=== PATIENT | male | born 1950 | race Hispanic/Latino ===

== ENCOUNTER 2017-03-30 16:48 | Emergency (ER) | payer MEDICARE, OTHER ==
[2017-03-30 16:59] VITALS: BMI 25.8
[2017-03-30 17:07] VITALS: TEMP 98.1
[2017-03-30] MEDS ORDERED: Lidocaine 1% Inj (20ml) ONE (17:26)
[2017-03-30] MEDS ORDERED: Lidocaine 1% Inj (20ml) IJ STA (18:03)
[2017-03-30] MEDS ORDERED: Aritificial Tears (15ml) OU ONE (18:03)
--- NOTE | 2017-03-30 18:09 | ED PDOC ---
Arrival/HPI - General Historian: Patient, Spouse - History of Present Illness Time/Duration: Prior to Arrival Symptom Onset: Sudden Symptom Course: Unchanged Activities at Onset: Rest Context: Sitting <Beau Coronado - Last Filed: 03/30/17 19:13> <MarivelGeraldine - Last Filed: 03/30/17 19:43> - General Chief Complaint: Abnormal Skin Integrity Time Seen by Provider: 03/30/17 17:03 - History of Present Illness Narrative History of Present Illness (Text): 67 M presents to ED with complaint of bleeding surgical wound above right eye. Patient states that he had bilateral eye lift earlier today by Dr. Ma on [facility] in [facility]. Patient reports that he left the surgeon's office and got to [place] when his eye began to bleed. Patient's got off of the first exit and came straight to hospital. The laceration is located in suprapalebral are above right eye. Patient reports minimal pain. Denies fever/ chills, cp, sob, palpitations, abd pain, n/v/d. (Beau Coronado) Past Medical History - Provider Review Nursing Documentation Reviewed: Yes - Travel History Have you recently traveled outside [place] w/in the past 3 mons?: No - Infectious Disease Hx of Infectious Diseases: None - Cardiac Hx Cardiac Disorders: Yes Hx Hypertension: Yes - Pulmonary Hx Respiratory Disorders: No - Neurological Hx Neurological Disorder: No - HEENT Hx HEENT Disorder: No - Renal Hx Renal Disorder: No - Endocrine/Metabolic Hx Endocrine Disorders: No - Hematological/Oncological Hx Blood Disorders: No - Integumentary Hx Dermatological Disorder: No - Musculoskeletal/Rheumatological Hx Musculoskeletal Disorders: Yes Hx Back Pain: Yes Other/Comment: drop foot L foot - Gastrointestinal Hx Gastrointestinal Disorders: No - Genitourinary/Gynecological Hx Genitourinary Disorders: No - Psychiatric Hx Psychophysiologic Disorder: No Hx Substance Use: No - Anesthesia Hx Anesthesia: Yes Hx Anesthesia Reactions: No <Beau Coronado - Last Filed: 03/30/17 19:13> Family/Social History - Physician Review Nursing Documentation Reviewed: Yes Family/Social History: Unknown Family HX Smoking Status: Current Some Days Smoker Hx Alcohol Use: No Hx Substance Use: No <Beau Coronado - Last Filed: 03/30/17 19:13> Allergies/Home Meds <Beau Coronado - Last Filed: 03/30/17 19:13> <Geraldine Orta - Last Filed: 03/30/17 19:43> Allergies/Adverse Reactions: Allergies No Known Allergies Allergy (Verified 03/30/17 16:59) Home Medications: Home Meds Medication Instructions Recorded Confirmed Gabapentin [Neurontin] 1,200 mg PO BID 03/30/17 03/30/17 amLODIPine [Norvasc] 10 mg PO DAILY 03/30/17 03/30/17 Review of Systems - Review of Systems Constitutional: absent: Fatigue, Weight Change, Fevers, Night Sweats Eyes: absent: Vision Changes, Photophobia, Eye Pain ENT: absent: Hearing Changes, Rhinorrhea, Sinus Congestion Respiratory: absent: SOB, Cough, Sputum, Wheezing Cardiovascular: absent: Chest Pain, Palpitations, Calf Pain, ROJO, Syncope Gastrointestinal: absent: Abdominal Pain, Constipation, Diarrhea, Nausea, Vomiting Genitourinary Male: absent: Dysuria, Frequency, Hematuria, Urinary Output Changes Musculoskeletal: absent: Arthralgias, Back Pain, Neck Pain, Joint Swelling, Myalgias Skin: Other (suture broke from surgery earlier today) Neurological: Headache. absent: Dizziness, Focal Weakness, Gait Changes Endocrine: absent: Diaphoresis, Polyuria, Polydipsia Hemo/Lymphatic: absent: Adenopathy, Easy Bleeding, Easy Bruising Psychiatric: absent: Anxiety, Depression, Suicidal Ideation <JohnprosperBeau dee - Last Filed: 03/30/17 19:13> Physical Exam Vital Signs Reviewed: Yes Temperature: Afebrile Blood Pressure: Hypertensive Pulse: Regular Respiratory Rate: Normal Appearance: Positive for: Well-Appearing, Non-Toxic, Comfortable Pain Distress: Mild Mental Status: Positive for: Alert and Oriented X 3 - Systems Exam Head: Present: Normocephalic, Other (sutures above eyes bilateral from eye lift surgery, Right eye wound dehiscendence with bleed) Pupils: Present: PERRL Extroacular Muscles: Present: EOMI Conjunctiva: Present: Normal Ears: Present: Normal Mouth: Present: Moist Mucous Membranes Pharnyx: Present: Normal Nose (External): Present: Atraumatic Nose (Internal): Present: Normal Inspection Neck: Present: Normal Range of Motion, Trachea Midline Respiratory/Chest: Present: Clear to Auscultation, Good Air Exchange Cardiovascular: Present: Regular Rate and Rhythm, Normal S1, S2 Abdomen: Present: Normal Bowel Sounds. No: Tenderness, Distention, Peritoneal Signs Back: Present: Normal Inspection Upper Extremity: Present: NORMAL PULSES, Neurovascularly Intact, Capillary Refill < 2s Lower Extremity: Present: NORMAL PULSES, Neurovascularly Intact, Capillary Refill < 2 s Neurological: Present: GCS=15, CN II-XII Intact, Speech Normal, Motor Func Grossly Intact, Normal Sensory Function Skin: Present: Warm, Dry, Other (surgical wounds suture above bilateral eyes, right eye surg wound dehiscence suture with bleed) Lymphatic: No: Cervical Adenopathy, Axillary Adenopathy, Inguinal Adenopathy Psychiatric: Present: Alert, Oriented x 3, Normal Insight, Normal Concentration , Normal Affect, Normal Mood <Beau Coronado - Last Filed: 03/30/17 19:13> <Geraldine Orta - Last Filed: 03/30/17 19:43> Vital Signs Temp Pulse Resp BP Pulse Ox 03/30/17 18:21 80 18 136/87 99 03/30/17 17:06 98.1 F 91 H 19 132/100 H 96 Medical Decision Making <Beau Coronado - Last Filed: 03/30/17 19:13> <Geraldine Orta - Last Filed: 03/30/17 19:43> ED Course and Treatment: Three 6-0 nylon sutures were placed and bleeding was controlled. Bacitracin was applied and ice pack was given to control swelling. Patient is feeling better and is stable for discharge home. (Beau Coronado) Patient seen and examined with resident. Came up with treatment and disposition plan with resident. The patient is a 67 year old male who presented to the emergency department for evaluation of bleeding for a surgical wound. Additional HPI details as noted by the resident. On physical examination the patient has sutures to the bilateral eyes but the right side had some dehiscence. (Geraldine Orta) - Medication Orders Current Medication Orders: Discontinued Medications Artificial Tears (Artificial Tears) 1 ml OU ONCE ONE Stop: 03/30/17 18:04 Last Admin: 03/30/17 18:16 Dose: 2 drop Lidocaine HCl (Lidocaine 1% (20ml)) Confirm Administered Dose 20 ml .ROUTE .STK- MED ONE Stop: 03/30/17 17:27 Lidocaine HCl (Lidocaine 1% (20ml)) 20 ml IJ STAT STA Stop: 03/30/17 18:04 Last Admin: 03/30/17 18:00 Dose: 1 bottle - Procedure PROCEDURE NOTE (Text): PROCEDURE: LACERATION REPAIR Performed by the emergency provider Location: Right suprapalebral Length: 1 cm Description: clean wound edges,no foreign bodies, Surgical wound Distal CMS: Normal. No deficits. Neurovascularly intact. Anesthesia: Lidocaine 1% Preparation: The wound was cleaned with NS and Betadyne. The area was prepped and draped in the usual sterile fashion. Exploration: The wound was explored and no foreign bodies were found. Procedure: The wound was closed with 6-0 nylon. There was appropriate approximation. In total, 3 were used. Post-Procedure: Good closure and hemostasis. The patient tolerated the procedure well and there were no complications. CSM remains intact. Bacitracin and post procedure dressing applied. 03/30/17 18:26 (Beau Coronado) - PA / FOOD AND BEVERAGE MANAGER / Resident Statement HELIO has reviewed & agrees with the documentation as recorded. HELIO has examined the patient and agrees with the treatment plan. <Geraldine Orta - Last Filed: 03/30/17 19:43> Disposition/Present on Arrival - Present on Arrival Any Indicators Present on Arrival: No History of DVT/PE: No History of Uncontrolled Diabetes: No Urinary Catheter: No History of Decub. Ulcer: No History Surgical Site Infection Following: Orthopedic Procedures - Disposition Have Diagnosis and Disposition been Completed?: Yes Disposition Time: 18:00 Patient Plan: Discharge <Beau Coronado - Last Filed: 03/30/17 19:13> <Geraldine Orta - Last Filed: 03/30/17 19:43> - Disposition Diagnosis: Broken suture Disposition: HOME/ ROUTINE Condition: STABLE Discharge Instructions (ExitCare): Care For Your Stitches (ED) Print Language: EGYPTIAN Additional Instructions: Keep area clean, dry, intact Apply bacitracin daily Use ice to control swelling Follow up with Plastic Surgeon on Tuesday Follow up with PMD within 2-3 days Please return to ED if symptoms persist or condition worsens Referrals: Vianney KEENAN,MD Kendrick [Primary Care Provider] - Follow up with primary
[2017-03-30 18:21] VITALS: BP 136/87; PULSE 80; RESP 18; O2SAT 99
== END 2017-03-30 18:19 | disposition home or self-care (01) ==
LOC: ED 16:48
DX: T81.31XA Disruption of external operation (surgical) wound, not elsewhere classified, initial encounter (principal); Y83.8 Other surgical procedures as the cause of abnormal reaction of the patient, or of later complication, without mention of misadventure at the time of the procedure